=== PATIENT | male | born 1980 ===

== ENCOUNTER 2016-10-05 18:31 | Emergency (ER) | payer SELFPAY ==
[2016-10-05 18:41] VITALS: BP 136/101; PULSE 107; RESP 13; TEMP 97.3; O2SAT 97
[2016-10-05] MEDS ORDERED: Sodium Chloride 0.9% 1,000 ML IV STA (20:08)
--- NOTE | 2016-10-05 20:23 | ED PDOC ---
HPI: Psych/Substance Abuse Time Seen by Provider: 10/05/16 19:27 Chief Complaint (Nursing): Substance Abuse Chief Complaint (Provider): Heroin Overdose History Per: Patient History/Exam Limitations: no limitations Onset/Duration Of Symptoms: Mins Current Symptoms Are (Timing): Better Modifying Factor(s): Narcotics (heroin) Severity: Moderate Associated Symptoms: Other (unresponsive) Additional History Per: EMS, Additional Complaint(s): Rowdy Posey is a 36 year old male, with no pertinent past medical history, who presents to the emergency department via EMS for the evaluation of a heroin overdose, that the patient experienced just prior to arrival. Patient was found unresponsive by his , blue in color. As per patient's , 911 was alerted, and his son attempted to administer mouth to mouth which provided little to no relief. On arrival of EMS, Narcan Nasal [place] provided an instant, rapid recovery. As the patient arrives to the emergency room, he is awake, alert and oriented (x3), and admits to snorting a powder, which he states was "gifted" to him. Patient admits to consistent substance over the past 2-3 years; however, denies past overdoses. PMD: none specified Past Medical History Reviewed: Historical Data, Nursing Documentation, Vital Signs Vital Signs: Last Vital Signs Temp 97.3 F L 10/05/16 18:38 Pulse 107 H 10/05/16 18:38 Resp 13 10/05/16 18:38 BP 136/101 H 10/05/16 18:38 Pulse Ox 97 10/05/16 18:38 - Medical History PMH: No Chronic Diseases - Surgical History Surgical History: Cholecystectomy - Family History Family History: States: No Known Family Hx - Living Arrangements Living Arrangements: With Family - Social History Current smoker - smoking cessation education provided: Yes (Light Smoker <10 cigarettes daily) Alcohol: Social Drugs: Opiates (heroin) - Immunization History Hx Tetanus Toxoid Vaccination: No Hx Influenza Vaccination: No Hx Pneumococcal Vaccination: No - Home Medications Home Medications: Ambulatory Orders Medication Instructions Recorded No Known Home Med 10/05/16 - Allergies Allergies/Adverse Reactions: Allergies Allergy/AdvReac Type Severity Reaction Status Date / Time No Known Allergies Allergy Verified 10/05/16 18:38 Review of Systems ROS Statement: Except As Marked, All Systems Reviewed And Found Negative Neurological: Positive for: Other (unresponsive) Physical Exam - Reviewed Nursing Documentation Reviewed: Yes Vital Signs Reviewed: Yes - Physical Exam Appears: Positive for: Well, No Acute Distress Head Exam: Positive for: ATRAUMATIC, NORMAL INSPECTION, NORMOCEPHALIC Skin: Positive for: Normal Color, Warm, Dry Eye Exam: Positive for: Normal appearance, EOMI, PERRL, Other (pupils are 4 ml b /l) Cardiovascular/Chest: Positive for: Regular Rate, Rhythm. Negative for: Murmur Respiratory: Positive for: Normal Breath Sounds. Negative for: Wheezing, Respiratory Distress Gastrointestinal/Abdominal: Positive for: Normal Exam, Soft. Negative for: Tenderness Back: Positive for: Normal Inspection. Negative for: L CVA Tenderness, R CVA Tenderness Extremity: Positive for: Normal ROM. Negative for: Tenderness, Swelling Neurologic/Psych: Positive for: Alert, Oriented - Laboratory Results Result Diagrams: 10/05/16 20:26 10/05/16 20:26 - ECG O2 Sat by Pulse Oximetry: 97 (RA) Pulse Ox Interpretation: Normal Medical Decision Making Medical Decision Makin:27 Initial Impression: 36 year old male presents to the emergency department s/p opiate overdose. Initial Plan: * Electrocardiogram * Accucheck * Alcohol Serum * Complete Blood Count * Comprehensive Metabolic Panel * Urine Drug Screen * Urine Dip * Urinalysis * Sodium Chloride 0.9% 1,000 ml IV at 1,000 mls/hr * Reevaluation Scribe Attestation: Documented by Terell Castañeda, acting as a scribe for Mario Maciel MD. Provider Scribe Attestation: All medical record entries made by the Scribe were at my direction and personally dictated by me. I have reviewed the chart and agree that the record accurately reflects my personal performance of the history, physical exam, medical decision making, and the department course for this patient. I have also personally directed, reviewed, and agree with the discharge instructions and disposition. Time: 23:11 --Upon provider reevaluation patient remains alert and oriented per duration of stay in the ED and is medically stable for discharged with , and requires no further treatment in the ED at this time. Patient will be discharged home. --Counseling was provided and all questions were answered regarding diagnosis. Patient was counseled extensively regarding narcotic and opiate abuse and serious nature of overdose. Patient showed verbalized understanding. Clinical Impression: Opiate abuse overdose Scribe Attestation: Documented by Jihan Rosenberg, acting as a scribe for Maria Victoria Maciel MD. Provider Scribe Attestation: All medical record entries made by the Scribe were at my direction and personally dictated by me. I have reviewed the chart and agree that the record accurately reflects my personal performance of the history, physical exam, medical decision making, and the department course for this patient. I have also personally directed, reviewed, and agree with the discharge instructions and disposition. Disposition - Clinical Impression Clinical Impression: Opiate overdose Counseled Patient/Family Regarding: Studies Performed - Disposition Disposition: Routine/Home Disposition Time: 23:11 Condition: STABLE Instructions: Narcotic Abuse (ED), Adult Overdose (ED) Print Language: [place] CITIZ[place]
[2016-10-05 20:47] LABS: BASO # 0.1 K/uL (0.0-0.2); BASO % 0.4 % (0.0-2.0); EOS % 0.2 % (0.0-4.0); HEMATOCRIT 47.3 % (35.0-51.0); LYMPH # 1.1 K/uL (1.0-4.3); LYMPH % 6.8 % (20.0-40.0); MEAN CELL VOLUME 84.6 fl (80.0-94.0); MEAN CORPUSCULAR HEMOGLOBIN 27.6 pg (27.0-31.0); MEAN CORPUSCULAR HGB CONC 32.7 g/dL (33.0-37.0); MEAN PLATELET VOLUME 8.4 fl (7.2-11.7); MONO # 0.9 K/uL (0.0-0.8); MONO % 5.7 % (0.0-10.0); NEUT # 13.6 K/uL (1.8-7.0); NEUT % 86.9 % (50.0-75.0); PLATELET COUNT 225 K/uL (130-400); RED CELL DISTRIBUTION WIDTH 14.3 % (11.5-14.5); WHITE BLOOD COUNT 15.6 K/uL (4.8-10.8)
[2016-10-05 20:58] LABS: ALB/GLOB RATIO 1.3 (1.0-2.1); ALCOHOL SERUM < 10 mg/dl (0-10); ALKALINE PHOSPHATASE 194 U/L (38-126); ALT/SGPT 82 U/L (21-72); AST/SGOT 69 U/L (17-59); BILIRUBIN,TOTAL 0.7 mg/dl (0.2-1.3); BLOOD UREA NITROGEN 17 mg/dl (9-20); CALCIUM 9.2 mg/dL (8.4-10.2); CARBON DIOXIDE 25 mmol/L (22-30); CHLORIDE 104 mmol/L (98-107); GFR AFRICAN-AMERICAN > 60; GLUCOSE,RANDOM 96 mg/dL (75-110); POTASSIUM 4.4 MMOL/L (3.6-5.0); SODIUM 141 mmol/l (132-148); TOTAL PROTEIN 8.5 G/DL (6.3-8.2)
[2016-10-05 22:29] LABS: RBC URINE 3 /hpf (0-3); URINE BILIRUBIN NEGATIVE (NEGATIVE); URINE BLOOD NEGATIVE (NEGATIVE); URINE COLOR YELLOW (YELLOW); URINE GLUCOSE (UA) NEG (Normal); URINE KETONE NEGATIVE (NEGATIVE); URINE LEUKOCYTE ESTERASE NEG Leu/uL (Negative); URINE PROTEIN NEGATIVE (NEGATIVE); URINE UROBILINOGEN 0.2-1.0 mg/dL (0.2-1.0); WBC URINE 3 /hpf (0-5)
[2016-10-05 23:57] LABS: NEUTROPHIL 85 % (42-75); TOTAL CELLS COUNTED 100
[2016-10-06] LABS: EOSINOPHIL 2 % (0-7)
--- NOTE | 2016-10-09 10:18 | CARD ---
APPROVED REPORT EKG Measurement Heart [id number] <Conclusion> Sinus tachycardia Possible Left atrial enlargement Borderline ECG
== END 2016-10-05 23:26 | disposition home or self-care (01) ==
LOC: H.ER 18:31
DX: T40.1X1A Poisoning by heroin, accidental (unintentional), initial encounter (principal); F11.10 Opioid abuse, uncomplicated; F17.210 Nicotine dependence, cigarettes, uncomplicated
CPT/HCPCS: 80053; 81003; 82948; 85025; 96360; 99284; G0480; J7040